=== PATIENT | female | born 1960 | race Caucasian/White ===

== ENCOUNTER 2020-04-27 14:12 | Outpatient (CLI) | payer OTHER, SELFPAY ==
--- NOTE | ~2020-04-27 | US_ITS ---
EXAMINATION: US art doppler w press UE BI DATE: 04/27/2020 15:11 INDICATION: Coronary artery disease. TECHNIQUE: Segmental pressures and plethysmographic and Doppler waveforms of the upper extremity [place] were obtained. COMPARISON: None. FINDINGS: Right and left brachial artery pressures of 121 mm Hg and 28 mm Hg, respectively, are concordant (nor mal difference <= 30 mmHg). The right finger:brachial systolic pressure ratio is 1.02 (normal > 0.8). Segmental pressure gradients are normal. Arterial waveforms are biphasic with brisk systolic upstrok es throughout the right upper limb (normal upstroke < 0.2 s). The left finger:brachial systolic pressure ratio is 0.94. Segmental pressure gradients are normal. Ar terial waveforms are biphasic with brisk systolic upstrokes throughout the left upper limb. IMPRESSION: 1. No significant arterial occlusive disease to either upper limb with normal bilateral finger brachi al indices. Reviewed, dictated and finalized at location H. RMATION WRITER IMPRESSION: 1. No significant arterial occlusive disease to either upper limb with normal b ilateral finger brachial indices.
== END 2020-04-27 14:13 | disposition home or self-care (01) ==
PROVIDERS: PCP Nurse Practitioner Family; Visit Provider Internal Medicine Cardiovascular Disease
DX: I25.10 Atherosclerotic heart disease of native coronary artery without angina pectoris (principal)
CPT/HCPCS: 93923